=== PATIENT | female | born 1945 | race Caucasian/White ===

== ENCOUNTER 2020-10-25 13:01 | Outpatient (CLI) | payer MEDICARE ==
[2020-10-26 13:56] LABS: SARS-CoV-2 PCR by NAA Not Detected (NotDetected)
== END 2020-10-25 13:02 | disposition home or self-care (01) ==
LOC: CSHLAB 13:01
PROVIDERS: ATTEND Internal Medicine Critical Care Medicine
DX: Z20.822 Contact with and (suspected) exposure to COVID-19 (principal)
CPT/HCPCS: U0003; U0005

== ENCOUNTER 2022-06-17 14:10 | Outpatient (CLI) | payer MEDICARE | END 2022-06-17 14:11 | disposition home or self-care (01) | LOC: CSHMRI 14:10 | PROVIDERS: ATTEND Family Medicine | DX: M25.552 Pain in left hip (principal); S76.012A Strain of muscle, fascia and tendon of left hip, initial encounter; M24.152 Other articular cartilage disorders, left hip ==

== ENCOUNTER 2023-12-03 12:33 | Outpatient (CLI) | payer MEDICARE | END 2023-12-03 12:34 | disposition home or self-care (01) | LOC: CSHMAMMO 12:33 | PROVIDERS: ATTEND Family Medicine | DX: Z12.31 Encounter for screening mammogram for malignant neoplasm of breast (principal); Z78.0 Asymptomatic menopausal state; Z80.3 Family history of malignant neoplasm of breast; M85.851 Other specified disorders of bone density and structure, right thigh; M85.852 Other specified disorders of bone density and structure, left thigh | CPT/HCPCS: 77067; 77080 ==